=== PATIENT | male | born 1955 | race Caucasian/White ===

== ENCOUNTER 2021-01-14 17:23 | Emergency (ER) | payer MEDICARE ==
[~2021-01-14] VITALS: Ht 182.9 cm; Wt 90.7 kg
[2021-01-14 18:29] VITALS: BP 137/93
[2021-01-14] MEDS ORDERED: CELLULOSE,OXIDIZED 1 PKT EACH MC ONE (19:00)
[2021-01-14] MEDS ORDERED: GELATIN SPONGE,ABSORBABLE 1 SPONGE SPONGE TP ONE (19:14)
--- NOTE | 2021-01-14 19:39 | NUR ---
Patient discharged to home in stable condition. Written and verbal after care instructions given. Patient verbalizes understanding of instruction.
== END 2021-01-14 19:32 | disposition home or self-care (01) ==
LOC: ER 17:29
DX: S01.01XA Laceration without foreign body of scalp, initial encounter (principal); D68.9 Coagulation defect, unspecified; I48.91 Unspecified atrial fibrillation; W01.0XXA Fall on same level from slipping, tripping and stumbling without subsequent striking against object, initial encounter; Y93.89 Activity, other specified; Y92.89 Other specified places as the place of occurrence of the external cause; Y99.8 Other external cause status
CPT/HCPCS: 70450-TC